=== PATIENT | male | born 1940 | race Hispanic/Latino ===

== ENCOUNTER 2016-05-04 08:30 | Outpatient (CLI) | payer MEDICARE ==
[2016-05-04 09:19] LABS: #Eosinphils 0.1 thou/uL (0.0-0.7); #Lymphocytes 1.1 thou/uL (1.20-3.40); #Monocytes 0.6 thou/uL (0.11-0.59); #Neutrophils 6.1 thou/uL (1.40-6.50); %Basophils 0.5 % (0.0-1.0); %Eosinophils 1.5 % (0.0-10.0); %Lymphocytes 14.2 % (21.0-51.0); %Monocytes 7.9 % (0.0-10.0); Hematocrit 43.2 % (42.0-52.0); Mean Platelet Volume 8.4 fL (7.4-10.4); Red Blood Cell (RBC) Count 4.62 mill/uL (4.70-6.10)
[2016-05-04 09:33] LABS: Anion Gap 14 mmol/L (10-20); BUN (Urea Nitrogen) 10 mg/dL (8.4-25.7); Calc. Creatinine Clearance 0 mL/min (70-130); Calcium 9.3 mg/dL (7.8-10.44); Carbon Dioxide 29 mmol/L (23-31); Chloride 100 mmol/L (98-107); Estimated GFR-MDRD 71; LDL Cholesterol, Calculated 116 mg/dL
[2016-05-04 09:46] LABS: Hemoglobin A1c 5.9 % (4.0-6.0)
== END 2016-05-04 08:31 | disposition home or self-care (01) ==
LOC: NAV LAB 08:30
PROVIDERS: ATTEND Nurse Practitioner Family
DX: I73.9 Peripheral vascular disease, unspecified (principal); I10 Essential (primary) hypertension; E78.00 Pure hypercholesterolemia, unspecified; E11.9 Type 2 diabetes mellitus without complications; E87.1 Hypo-osmolality and hyponatremia; Z79.899 Other long term (current) drug therapy
CPT/HCPCS: 36415; 80048; 80061; 83036; 85025

== ENCOUNTER 2016-11-11 08:48 | Emergency (ER) | payer MEDICARE ==
[2016-11-11] MEDS ORDERED: Sodium Chloride 0.9% 1,000 ML ONE (09:27)
[2016-11-11 09:40] LABS: #Basophils 0.1 thou/uL (0.0-0.2); #Eosinphils 0.2 thou/uL (0.0-0.7); #Lymphocytes 1.2 thou/uL (1.20-3.40); #Monocytes 0.5 thou/uL (0.11-0.59); #Neutrophils 4.2 thou/uL (1.40-6.50); %Basophils 0.9 % (0.0-1.0); %Eosinophils 3.7 % (0.0-10.0); %Lymphocytes 19.3 % (21.0-51.0); %Monocytes 8.2 % (0.0-10.0); %Neutrophils 67.9 % (42.0-75.0); Hemoglobin 13.5 g/dL (14.0-18.0); Mean Corpuscular Hemoglobin 31.1 pg (27.0-31.0); Mean Corpuscular Volume 91.6 fl (80.0-94.0); Platelet Count 132 thou/uL (130-400); RBC Distribution Width 11.7 % (11.5-14.5); Red Blood Cell (RBC) Count 4.33 mill/uL (4.70-6.10); White Blood Cell (WBC) Count 6.3 thou/uL (4.8-10.8)
[2016-11-11 10:03] LABS: ALT (SGPT) 15 U/L (8-55); AST (SGOT) 18 U/L (5-34); Alkaline Phosphatase 96 U/L (40-150); Anion Gap 14 mmol/L (10-20); BUN (Urea Nitrogen) 10 mg/dL (8.4-25.7); Bilirubin, Total 0.5 mg/dL (0.2-1.2); CK (CPK) 160 U/L (30-200); Calc. Creatinine Clearance 0 mL/min (70-130); Calcium 9.2 mg/dL (7.8-10.44); Carbon Dioxide 24 mmol/L (23-31); Chloride 102 mmol/L (98-107); Estimated GFR-MDRD 81; Globulin 3.3 g/dL (2.4-3.5); Glucose 122 mg/dL (83-110); Potassium 3.5 mmol/L (3.5-5.1); Protein, Total 7.3 g/dL (5.8-8.1); Sodium 136 mmol/L (136-145)
[2016-11-11 10:09] LABS: CKMB 2.1 ng/mL (0-6.6); Troponin I 0.021 ng/mL (< 0.028)
== END 2016-11-11 10:22 | disposition home or self-care (01) ==
LOC: NAV ERS 08:48
DX: M62.89 Other specified disorders of muscle (principal); R42 Dizziness and giddiness
CPT/HCPCS: 80053; 82550; 82553; 84484; 85025; 93005; 96360; J7050

== ENCOUNTER 2017-01-03 08:57 | Outpatient (CLI) | payer MEDICARE ==
[2017-01-03 11:11] LABS: ALT (SGPT) 18 U/L (8-55); AST (SGOT) 23 U/L (5-34); Albumin 4.2 g/dL (3.4-4.8); Alkaline Phosphatase 92 U/L (40-150); Anion Gap 15 mmol/L (10-20); BUN (Urea Nitrogen) 10 mg/dL (8.4-25.7); Bilirubin, Total 0.7 mg/dL (0.2-1.2); Calc. Creatinine Clearance 0 mL/min (70-130); Calcium 9.1 mg/dL (7.8-10.44); Carbon Dioxide 25 mmol/L (23-31); Chloride 98 mmol/L (98-107); Cholesterol 137 mg/dl (< 200 Desired); Estimated GFR-MDRD 73; Globulin 2.8 g/dL (2.4-3.5); Glucose 137 mg/dL (83-110); HDL Cholesterol 46 mg/dL (>60 Neg Risk); LDL Cholesterol, Calculated 59 mg/dL; Potassium 3.2 mmol/L (3.5-5.1); Sodium 135 mmol/L (136-145); Triglycerides 162 mg/dL (Less than 150)
== END 2017-01-03 08:58 | disposition home or self-care (01) ==
LOC: NAV LAB 08:57
PROVIDERS: ATTEND Internal Medicine Cardiovascular Disease
DX: E78.00 Pure hypercholesterolemia, unspecified (principal)
CPT/HCPCS: 36415; 80053; 80061

== ENCOUNTER 2018-05-20 14:31 | Emergency (ER) | payer MEDICARE ==
[2018-05-20] MEDS ORDERED: Ondansetron PF 4 MG/2 ML Vial ONE (14:58)
[2018-05-20 15:02] LABS: #Basophils 0.1 thou/uL (0.0-0.2); #Eosinphils 0.1 thou/uL (0.0-0.7); #Lymphocytes 1.3 thou/uL (1.20-3.40); #Monocytes 1.1 thou/uL (0.11-0.59); #Neutrophils 13.3 thou/uL (1.40-6.50); %Basophils 0.3 % (0.0-1.0); %Eosinophils 0.5 % (0.0-10.0); %Monocytes 6.7 % (0.0-10.0); %Neutrophils 84.5 % (42.0-75.0); Hemoglobin 12.1 g/dL (14.0-18.0); Mean Corpuscular HGB CONC 36.4 g/dL (32.0-36.0); Mean Corpuscular Hemoglobin 31.4 pg (27.0-31.0); Mean Corpuscular Volume 86.2 fL (78.0-98.0); Mean Platelet Volume 7.6 fL (7.4-10.4); Platelet Count 163 thou/uL (130-400); RBC Distribution Width 9.4 % (11.5-14.5); Red Blood Cell (RBC) Count 3.87 mill/uL (4.70-6.10); White Blood Cell (WBC) Count 15.7 thou/uL (4.8-10.8)
[2018-05-20 15:16] LABS: ALT (SGPT) 21 U/L (8-55); AST (SGOT) 25 U/L (5-34); Albumin 4.4 g/dL (3.4-4.8); Alkaline Phosphatase 72 U/L (40-150); Anion Gap 15 mmol/L (10-20); BUN (Urea Nitrogen) 9 mg/dL (8.4-25.7); Bilirubin, Total 1.2 mg/dL (0.2-1.2); Calc. Creatinine Clearance 0 mL/min (70-130); Calcium 9.6 mg/dL (7.8-10.44); Carbon Dioxide 23 mmol/L (23-31); Chloride 77 mmol/L (98-107); Estimated GFR-MDRD Greater than 90; Globulin 2.7 g/dL (2.4-3.5); Glucose 146 mg/dL (83-110); Lipase 15 U/L (8-78); Potassium 3.4 mmol/L (3.5-5.1); Protein, Total 7.1 g/dL (5.8-8.1)
[2018-05-20 15:20] LABS: Sodium 112 mmol/L (136-145)
[2018-05-20 15:30] LABS: Bilirubin Negative (Negative); Blood, Urine Trace (Negative); Clarity Clear (Clear); Glucose, Urine (Dipstick) 250 mg/dL (Negative); Leukocyte Negative (Negative); Nitrite Negative (Negative); Protein, Urine (Dipstick) Negative (Neg-Trace); Specific Gravity, Urine 1.015 (1.005-1.030); Urobilinogen 0.2 mg/dL (0.2-1.0); pH, Urine 7.5 (5.0-9.0)
[2018-05-20] MEDS ORDERED: Sodium Chloride 0.9% 500 ML ONE (15:32)
--- NOTE | 2018-05-20 15:37 | RAD ---
2 VIEWS CHEST: Date: 05/20/18 PROVIDED CLINICAL HISTORY: Chest pain. FINDINGS: Cardiac silhouette is within normal limits. There is abnormal opacity present anterior to the thoraci c spine on the lateral view, which may reflect mediastinal mass. This is not localized on the frontal projection. The lungs appear otherwise clear. No evidence for large effusion or pneumothorax. IMPRESSION: Abnormal chest radiograph. Opacity involving the lateral view may reflect mediastinal mass. Consider chest CT. CODE T. POS: [facility]
[2018-05-20 15:38] LABS: RBC/HPF 0-3 HPF (0-3); WBC/HPF 0-3 HPF (0-3)
--- NOTE | 2018-05-20 16:01 | CT ---
CT BRAIN: Date: 05/20/18 PROVIDED CLINICAL HISTORY: Altered mental status. FINDINGS: Comparison made with study dated 03/12/17. The examination is limited by patient motion. The ventricular system is normal in size and morphology . There is no evidence for mass-producing intracranial hemorrhage. Chronic microvascular ischemic benito nges appear similar to the prior study. The extracranial soft tissues and osseous structures demonstr ate no evidence for an acute process. IMPRESSION: Limited study without evidence for mass-producing intracranial hemorrhage. POS: [facility]
--- NOTE | 2018-05-20 16:06 | CT ---
CT ABDOMEN AND PELVIS WITHOUT CONTRAST: Date: 05/20/18 PROVIDED CLINICAL HISTORY: Abdominal pain. FINDINGS: The visualized lung bases demonstrate trace bilateral pleural effusions. The solid abdominal organs are suboptimally evaluated on the basis of absence of IV contrast material and patient respiratory motion. A small hiatal hernia is present. There is fluid density within the distal esophagus that may reflect reflux. There is no bowel dilatation, inflammatory fat stranding, free fluid, or free air apparent. The appen tanya appears normal. Vascular calcifications are seen involving the abdominal aorta and its branches. The osseous structures demonstrate no concerning lytic or blastic lesions. IMPRESSION: 1. Fluid density within the distal esophagus that may reflect gastroesophageal reflux. 2. Trace bilateral pleural fluid. 3. Other chronic findings as above. POS: [facility]
== END 2018-05-20 16:34 | disposition short-term general hospital (02) ==
LOC: NAV ERS 14:31
DX: J98.59 Other diseases of mediastinum, not elsewhere classified (principal); R10.9 Unspecified abdominal pain; E87.1 Hypo-osmolality and hyponatremia; R41.0 Disorientation, unspecified; D72.829 Elevated white blood cell count, unspecified; I25.10 Atherosclerotic heart disease of native coronary artery without angina pectoris; E11.40 Type 2 diabetes mellitus with diabetic neuropathy, unspecified; E78.5 Hyperlipidemia, unspecified; I10 Essential (primary) hypertension; E78.1 Pure hyperglyceridemia; I73.9 Peripheral vascular disease, unspecified; F41.9 Anxiety disorder, unspecified; M19.90 Unspecified osteoarthritis, unspecified site; F32.9 Major depressive disorder, single episode, unspecified; Z86.73 Personal history of transient ischemic attack (TIA), and cerebral infarction without residual deficits; Z79.891 Long term (current) use of opiate analgesic; Z79.82 Long term (current) use of aspirin; Z79.899 Other long term (current) drug therapy; Z79.84 Long term (current) use of oral hypoglycemic drugs
CPT/HCPCS: 70450; 71046; 74176; 80053; 81003; 81015; 82140; 83605; 83690; 83880; 84484; 85025; 87040; 93005; 96374; J2405; J7050

== ENCOUNTER 2019-04-19 21:45 | Emergency (ER) | payer MEDICARE ==
[2019-04-19] MEDS ORDERED: Lidocaine 1% (PF) 30 ML VIAL ONE (22:02)
[2019-04-19] MEDS ORDERED: Adacel (T-DAP) 0.5 ML SYRINGE ONE (22:15)
[2019-04-19] MEDS ORDERED: Bacitracin 1 PK ONE (22:20)
--- NOTE | 2019-04-19 22:26 | RAD ---
XR Humerus Rt 2 View STANDARD HISTORY: Injury to humerus. COMPARISON: None. 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 There is no evidence of fracture. IMPRESSION: No fracture.
== END 2019-04-19 22:26 | disposition home or self-care (01) ==
LOC: NAV ERS 21:45
DX: S43.401A Unspecified sprain of right shoulder joint, initial encounter (principal); S01.21XA Laceration without foreign body of nose, initial encounter; I25.10 Atherosclerotic heart disease of native coronary artery without angina pectoris; E11.9 Type 2 diabetes mellitus without complications; E78.5 Hyperlipidemia, unspecified; E78.00 Pure hypercholesterolemia, unspecified; I10 Essential (primary) hypertension; K21.9 Gastro-esophageal reflux disease without esophagitis; M19.90 Unspecified osteoarthritis, unspecified site; F41.9 Anxiety disorder, unspecified; F32.9 Major depressive disorder, single episode, unspecified; Z79.82 Long term (current) use of aspirin; Z79.84 Long term (current) use of oral hypoglycemic drugs; Z79.899 Other long term (current) drug therapy; Z86.73 Personal history of transient ischemic attack (TIA), and cerebral infarction without residual deficits; Z23 Encounter for immunization; W18.30XA Fall on same level, unspecified, initial encounter
CPT/HCPCS: 12011; 36416; 90471; 90715; 93005; J2001

== ENCOUNTER 2019-10-03 20:50 | Emergency (ER) | payer MEDICARE | END 2019-10-03 21:19 | disposition home or self-care (01) | LOC: NAV ERS 20:50 | DX: S51.012A Laceration without foreign body of left elbow, initial encounter (principal); I25.10 Atherosclerotic heart disease of native coronary artery without angina pectoris; E78.5 Hyperlipidemia, unspecified; E78.00 Pure hypercholesterolemia, unspecified; I10 Essential (primary) hypertension; M19.90 Unspecified osteoarthritis, unspecified site; E11.40 Type 2 diabetes mellitus with diabetic neuropathy, unspecified; E87.1 Hypo-osmolality and hyponatremia; E78.1 Pure hyperglyceridemia; K21.9 Gastro-esophageal reflux disease without esophagitis; F41.9 Anxiety disorder, unspecified; I73.9 Peripheral vascular disease, unspecified; F32.9 Major depressive disorder, single episode, unspecified; Z86.73 Personal history of transient ischemic attack (TIA), and cerebral infarction without residual deficits; Z79.891 Long term (current) use of opiate analgesic; Z79.82 Long term (current) use of aspirin; Z79.84 Long term (current) use of oral hypoglycemic drugs; Z79.899 Other long term (current) drug therapy; W06.XXXA Fall from bed, initial encounter | CPT/HCPCS: 99283 ==

== ENCOUNTER 2020-04-16 21:00 | Emergency (ER) | payer MEDICARE ==
[~2020-04-16 21:00] MED LIST: Iopamidol 370 76% 100 ML VIAL ONE
[2020-04-16 21:26] LABS: #Eosinphils 0.2 thou/uL (0.0-0.7); #Lymphocytes 1.3 thou/uL (1.20-3.40); #Monocytes 0.5 thou/uL (0.11-0.59); #Neutrophils 3.1 thou/uL (1.40-6.50); %Basophils 0.7 % (0.0-1.0); %Eosinophils 3.2 % (0.0-10.0); %Lymphocytes 25.4 % (21.0-51.0); %Monocytes 10.3 % (0.0-10.0); %Neutrophils 60.4 % (42.0-75.0); Hemoglobin 13.1 g/dL (14.0-18.0); Mean Corpuscular HGB CONC 32.6 g/dL (32.0-36.0); Mean Corpuscular Hemoglobin 31.2 pg (27.0-31.0); Mean Corpuscular Volume 95.7 fL (78.0-98.0); Mean Platelet Volume 7.6 fL (7.4-10.4); Platelet Count 134 thou/uL (130-400); RBC Distribution Width 11.8 % (11.5-14.5); Red Blood Cell (RBC) Count 4.19 mill/uL (4.70-6.10); White Blood Cell (WBC) Count 5.2 thou/uL (4.8-10.8)
--- NOTE | 2020-04-16 21:44 | RAD ---
Portable frontal chest radiograph: 04/16/2020 COMPARISON: 09/10/2015 HISTORY: Chest pain FINDINGS: Lungs are clear. Heart and mediastinal contours appear within normal limits. Mild stable in creased interstitial density. Bilateral shoulder degenerative change, right greater than left. Elevation of the right humeral head suggests rotator cuff tear. IMPRESSION: No acute findings.
[2020-04-16 21:50] LABS: ALT (SGPT) 23 U/L (8-55); AST (SGOT) 21 U/L (5-34); Albumin 3.8 g/dL (3.4-4.8); Alkaline Phosphatase 105 U/L (40-110); Anion Gap 14 mmol/L (10-20); BUN (Urea Nitrogen) 17 mg/dL (8.4-25.7); Bilirubin, Total 0.2 mg/dL (0.2-1.2); CK (CPK) 139 U/L (30-200); Calc. Creatinine Clearance 0 mL/min (70-130); Calcium 8.4 mg/dL (7.8-10.44); Carbon Dioxide 23 mmol/L (23-31); Chloride 106 mmol/L (98-107); Globulin 3.1 g/dL (2.4-3.5); Glucose 218 mg/dL (83-110); Lipase 46 U/L (8-78); Potassium 3.6 mmol/L (3.5-5.1); Protein, Total 6.9 g/dL (5.8-8.1); Sodium 139 mmol/L (136-145)
--- NOTE | 2020-04-16 22:43 | CT ---
CT abdomen and pelvis: 04/16/2020 COMPARISON: 05/20/2018 HISTORY: Epigastric pain TECHNIQUE: Axial CT imaging at 5 mm intervals from lung bases through pubic symphysis with IV contras t. Coronal and sagittal reformatted imaging obtained. FINDINGS: Evaluation of the lung bases limited by motion. There is a stable nodule in the right middl e lobe on image 5 measuring approximately 5 mm. No free intraperitoneal air or fluid. The gallbladder is contracted and not well assessed on this exam. The liver, spleen, pancreas, adrenal gl ands, and kidneys demonstrate no acute findings. There is a small hypodense exophytic midpole right renal lesion, too small to characterize. No evidence for bowel obstruction or bowel inflammation. The appendix appears unremarkable. Scattered atherosclerotic calcification of the abdominal aorta and its branches noted. No abdominal or pelvic adenopathy. No acute osseous abnormality. IMPRESSION: No acute findings.
[2020-04-16 22:44] LABS: Bilirubin Negative (Negative); Blood, Urine Negative (Negative); Clarity Clear (Clear); Glucose, Urine (Dipstick) >=1000 mg/dL (Negative); Ketone, Urine Negative (Negative); Leukocyte Negative (Negative); Nitrite Negative (Negative); Protein, Urine (Dipstick) Negative (Neg-Trace); Specific Gravity, Urine 1.015 (1.005-1.030); Urobilinogen 0.2 mg/dL (Less than 2); pH, Urine 6.5 (5.0-9.0)
== END 2020-04-17 00:55 | disposition home or self-care (01) ==
LOC: NAV ERS 21:00
DX: R53.1 Weakness (principal); I10 Essential (primary) hypertension; I25.10 Atherosclerotic heart disease of native coronary artery without angina pectoris; E11.42 Type 2 diabetes mellitus with diabetic polyneuropathy; E78.5 Hyperlipidemia, unspecified; E78.00 Pure hypercholesterolemia, unspecified; K21.9 Gastro-esophageal reflux disease without esophagitis; Z79.891 Long term (current) use of opiate analgesic; Z86.73 Personal history of transient ischemic attack (TIA), and cerebral infarction without residual deficits; E11.51 Type 2 diabetes mellitus with diabetic peripheral angiopathy without gangrene; N40.0 Benign prostatic hyperplasia without lower urinary tract symptoms; Z79.84 Long term (current) use of oral hypoglycemic drugs; Z79.899 Other long term (current) drug therapy
CPT/HCPCS: 71045; 74177; 80053; 81003; 82550; 83690; 84484; 85025; 93005; 94760; Q9967

== ENCOUNTER 2021-05-18 09:31 | Emergency (ER) | payer MEDICARE ==
[2021-05-18 10:39] LABS: #Eosinphils 0.1 thou/uL (0.0-0.7); #Lymphocytes 1.2 thou/uL (1.20-3.40); #Monocytes 0.6 thou/uL (0.11-0.59); #Neutrophils 5.4 thou/uL (1.40-6.50); %Basophils 0.4 % (0.0-1.0); %Eosinophils 1.3 % (0.0-10.0); %Lymphocytes 16.2 % (21.0-51.0); %Monocytes 8.1 % (0.0-10.0); %Neutrophils 74.1 % (42.0-75.0); Hemoglobin 8.4 g/dL (14.0-18.0); Mean Corpuscular HGB CONC 32.8 g/dL (32.0-36.0); Mean Corpuscular Hemoglobin 29.7 pg (27.0-31.0); Mean Corpuscular Volume 90.7 fL (78.0-98.0); Mean Platelet Volume 7.4 fL (7.4-10.4); Platelet Count 162 thou/uL (130-400); RBC Distribution Width 13.3 % (11.5-14.5); Red Blood Cell (RBC) Count 2.83 mill/uL (4.70-6.10); White Blood Cell (WBC) Count 7.3 thou/uL (4.8-10.8)
[2021-05-18 10:53] LABS: ALT (SGPT) 13 U/L (8-55); AST (SGOT) 16 U/L (5-34); Albumin 3.7 g/dL (3.4-4.8); Alkaline Phosphatase 86 U/L (40-110); Anion Gap 14 mmol/L (10-20); BUN (Urea Nitrogen) 14 mg/dL (8.4-25.7); Bilirubin, Total 0.4 mg/dL (0.2-1.2); Calc. Creatinine Clearance 0 mL/min (70-130); Calcium 8.8 mg/dL (7.8-10.44); Carbon Dioxide 20 mmol/L (23-31); Chloride 108 mmol/L (98-107); Globulin 3.1 g/dL (2.4-3.5); Glucose 157 mg/dL (83-110); Potassium 3.6 mmol/L (3.5-5.1); Protein, Total 6.8 g/dL (5.8-8.1); Sodium 138 mmol/L (136-145)
[2021-05-18] MEDS ORDERED: Sodium Chloride 0.9% 1,000 ML ONE (11:09)
[2021-05-18] MEDS ORDERED: Sodium Chloride 0.9% 100 ML ONE (11:18)
[2021-05-18] MEDS ORDERED: cefTRIAXone\\ROCEPHIN 2 GM VIAL ONE (11:18)
[2021-05-18 12:30] LABS: Bilirubin Negative (Negative); Blood, Urine Negative (Negative); Clarity Clear (Clear); Glucose, Urine (Dipstick) 100 mg/dL (Negative); Ketone, Urine Trace mg/dL (Negative); Leukocyte Negative (Negative); Nitrite Negative (Negative); Protein, Urine (Dipstick) 30 mg/dL (Neg-Trace); pH, Urine 5.5 (5.0-9.0)
[2021-05-18 12:44] LABS: RBC/HPF 0-3 HPF (0-3)
[2021-05-18 13:17] LABS: Lactic Acid 2.2 mmol/L (0.5-2.2)
[2021-05-18 14:28] LABS: Prothrombin Time 13.4 sec (12.0-14.7)
[2021-05-18 14:29] LABS: PTT 32.4 sec (22.9-36.1)
[2021-05-18 21:18] LABS: SARS-CoV-2 NAA Rapid Test Not Detected (NotDetected)
[2021-05-19 08:23] LABS: #Eosinphils 0.1 thou/uL (0.0-0.7); #Lymphocytes 1.5 thou/uL (1.20-3.40); #Monocytes 0.6 thou/uL (0.11-0.59); #Neutrophils 2.8 thou/uL (1.40-6.50); %Basophils 0.9 % (0.0-1.0); %Eosinophils 2.9 % (0.0-10.0); %Lymphocytes 29.4 % (21.0-51.0); %Monocytes 12.1 % (0.0-10.0); %Neutrophils 54.7 % (42.0-75.0); Hemoglobin 8.1 g/dL (14.0-18.0); Mean Corpuscular HGB CONC 32.9 g/dL (32.0-36.0); Mean Corpuscular Hemoglobin 29.9 pg (27.0-31.0); Mean Corpuscular Volume 90.8 fL (78.0-98.0); Mean Platelet Volume 6.9 fL (7.4-10.4); Platelet Count 158 thou/uL (130-400); RBC Distribution Width 13.4 % (11.5-14.5); Red Blood Cell (RBC) Count 2.72 mill/uL (4.70-6.10)
[2021-05-19 08:34] LABS: ALT (SGPT) 11 U/L (8-55); AST (SGOT) 16 U/L (5-34); Albumin 3.6 g/dL (3.4-4.8); Alkaline Phosphatase 89 U/L (40-110); Anion Gap 13 mmol/L (10-20); BUN (Urea Nitrogen) 11 mg/dL (8.4-25.7); Bilirubin, Total 0.5 mg/dL (0.2-1.2); Calc. Creatinine Clearance 0 mL/min (70-130); Calcium 8.8 mg/dL (7.8-10.44); Carbon Dioxide 23 mmol/L (23-31); Chloride 108 mmol/L (98-107); Glucose 120 mg/dL (83-110); Potassium 3.8 mmol/L (3.5-5.1); Protein, Total 6.6 g/dL (5.8-8.1); Sodium 140 mmol/L (136-145)
== END 2021-05-19 19:54 | disposition short-term general hospital (02) ==
LOC: NAV ERS 09:31
DX: K92.2 Gastrointestinal hemorrhage, unspecified (principal); I25.10 Atherosclerotic heart disease of native coronary artery without angina pectoris; E11.9 Type 2 diabetes mellitus without complications; E78.5 Hyperlipidemia, unspecified; E78.00 Pure hypercholesterolemia, unspecified; I10 Essential (primary) hypertension; Z86.73 Personal history of transient ischemic attack (TIA), and cerebral infarction without residual deficits; Z87.891 Personal history of nicotine dependence; Z20.822 Contact with and (suspected) exposure to COVID-19; Z79.82 Long term (current) use of aspirin; Z79.84 Long term (current) use of oral hypoglycemic drugs; Z79.899 Other long term (current) drug therapy
CPT/HCPCS: 36416; 51701; 71045; 74177; 80053; 81003; 81015; 82274; 83605; 85025; 85610; 85730; 87804; J0696; J3490; J7050; Q9967; U0002